=== PATIENT | male | born 1945 | race Caucasian/White ===

== ENCOUNTER 2017-07-17 11:03 | Day surgery (SDC) | payer MEDICARE, SELFPAY ==
[2017-07-17 11:25] VITALS: BP 192/74; PULSE 50; RESP 16; TEMP 36.3; O2SAT 96; BMI 23.2
[2017-07-17 11:46] LABS: Bedside Glucose 112 mg/dL (70-110)
[2017-07-17 12:28] VITALS: BP 140/56; BP 192/74; PULSE 46; RESP 16; TEMP 35.7; O2SAT 96
[2017-07-17 12:35] VITALS: BP 155/60; BP 192/74; PULSE 48; RESP 16; O2SAT 91
[2017-07-17 12:40] VITALS: BP 164/63; BP 192/74; PULSE 48; RESP 16; O2SAT 92
[2017-07-17 12:45] VITALS: BP 179/59; BP 192/74; PULSE 48; RESP 16; TEMP 36.8; O2SAT 95
--- NOTE | 2017-07-17 13:11 | OP.PCM_ITS ---
Report of Operation Date of Procedure: 07/17/17 Pre-Operative Diagnosis: abnormal lesion seen on cecum of CT scan Post-Operative Diagnosis: no abnormality noted Surgery/Procedure Performed:: colonoscopy Description of Surgical Findings:: CT scan of abdomen/pelvis obtained which indicated that there was an abnormal lesion in the cecum, the cecum was carefully examined and no abnormality was noted Anesthesiologist: Pancho Wu Specimen's removed: none Estimated Blood Loss (mL): none Fluids Replaced: 600 ml RL Description of Procedure: After informed consent was given, the patient was brought to the endoscopy suite and placed in the supine position. Appropriate time out protocol was followed. Appropriate cardiac, blood pressure, and pulse oximetry monitoring was placed. After stable vital signs were noted, the patient was given intravenous conscious sedation. The patient was then placed in the left lateral decubitis position. The colonoscope was lubricated and carefully inserted into the patient?s anus. It was then advanced into the rectum, then into the sigmoid colon, then into the left descending colon, past the splenic flexure, into the transverse colon, past the hepatic flexure, then down into the right descending colon and into the cecum. The cecum was identified by: transillumination, confluence of the tenae coli, identification of the ileocecal valve and appendiceal orifice, and external pressure with indentation. Because of the CT scan results, careful examination of the cecum was done. There was no evidence of any masses or mucosal abnormality. At this point, the colonoscope was slowly retracted back and the entire colonic mucosa was examined. There was no evidence of extrinsic compression and no inflammatory changes were noted. The colon cleansing preparation was adequate. No intraluminal obstructing lesions, no strictures, and no ulcers were noted. Retroflex view in the rectum revealed no lesions in the rectal vault except for hemorrhoids. The colonoscope was removed intact. Patient tolerated procedure well. - Complications none
[2017-07-17 13:15] VITALS: BP 192/74
--- NOTE | 2017-07-23 10:59 | HP.PCM_ITS ---
History and Physical Date of Admission: 07/17/17 HISTORY AND PHYSICAL ? Anival Harris 1945 ?? REFERRING PHYSICIAN: Noel Raymond MD ? CHIEF COMPLAINT: Consult (Cecal lesion) ? HPI: The patient is a 72 year old male presents with abnormal CT scan finding in the cecum of the colon (06/27/17) He had colonoscopy 10/28/16, for which pictures reveal no lesion, however, there seems to have been retained stools. (Also had hyperplastic polyps of sigmoid and rectum.) However, given findings on CT scan - I would recommend repeat colonoscopy. Patient recalls from his previous endoscopy of being very uncomfortable - will therefore proceed with future endoscopy using MAC anesthesia. Denies weight loss. Denies family history of colon cancer. Has had increased abdominal gas lately Notes occasional constipation. Denies blood in stools Presently on iron supplementation for anemia. Notes stomach pain - mid abdomen which seems improved since decreased use of ibuprofen. ? PAST MEDICAL HISTORY Costa's esophagus determined by biopsy 10/26/2016 CAD (coronary artery disease) ? ? CABG 2004 Depressive disorder, not elsewhere classified ? Diabetes (HCC) ? Elevated glucose ? Essential hypertension, benign ? Horseshoe kidney ? ? CT 01/2010 Other and unspecified hyperlipidemia ? Pancreatitis ? Snoring ? Stroke (HCC) ? PAST SURGICAL HISTORY CABG (5) VENOUS GRAFTS & ARTERIAL GRAFT(S) ? 2005 COLONOSCOP W/ OR W/O BRS SPEC ? 09/18/14 ? Colonoscopy COLONOSCOP W/ OR W/O BRS SPEC ? 10/26/2016 ? Colonoscopy-repeat 5 years EGD W/O OR W/BRUSH/WASH ? 09/18/14 ? EGD EGD W/O OR W/BRUSH/WASH ? 10/26/2016 ? EGD repeat 2 years STABISMUS SURG,ONE HORIZ MUSCLE ? 1961 ? Strabismus Surgery ? ? Current Outpatient Prescriptions: metFORMIN (GLUCOPHAGE) 500 mg tablet Take 2 tablets by mouth twice daily. metoprolol tartrate, short acting, (LOPRESSOR) 100 mg tablet Take 1 tablet by mouth twice daily. ferrous sulfate (IRON) 325 mg (65 mg iron) tablet Take 1 tablet by mouth daily with breakfast. lisinopril (ZESTRIL, PRINIVIL) 20 mg tablet Take 1 tablet by mouth once daily. citalopram hydrobromide (CELEXA) 10 mg tablet Take 1 tablet by mouth once daily. LORazepam (ATIVAN) 0.5 mg tab Take 2 tablets by mouth every 8 hours as needed (anxiety) for up to [address] (PROTONIX) 40 mg tablet Take 1 tablet by mouth twice daily. Take on empty stomach, 1/2 hr before meal. Ammonium,Pot.and Sodium Lactates (AMLACTIN) crea Apply 1 application to affected area once daily. divalproex ER (DEPAKOTE ER) 250 mg 24 hr tablet Take 1 tablet by mouth once daily. terbinafine HCl (LAMISIL) 250 mg tablet Take 1 tablet by mouth once daily. Lovastatin 40 mg tablet TAKE ONE TABLET BY MOUTH ONCE DAILY AT BEDTIME FOR cholesterol. ibuprofen (MOTRIN) 200 mg tablet Take 200 mg by mouth every 6 hours as needed. therapeutic multivitamin (THERA VITAMIN) tablet Take 1 tablet by mouth once daily. nitroglycerin sublingual 0.4 mg SL tablet Dissolve 1 tablet under the tongue as needed. FOR CHEST PAIN. IF NO RELIEF CALL 911 peg 3350-electrolytes (COLYTE) 240-22.72-6.72 -5.84 gram solution Take 4,000 mL by mouth one time only for 1 dose. ? ? ALLERGIES: Erythromycin; Penicillins ? PERSONAL HISTORY: Social History Marital status: Spouse name: Years of education: Number of children: 2 Social History Main Topics Smoking status: Current Every Day Smoker Packs/day: 0.50 Years: 0.00 Types: Cigarettes Smokeless status: Never Used Comment: Use to smoke 3 ppd now down to 1.5 ppd Alcohol use: No Drug use: No Sexual activity: No ? FAMILY HISTORY lung cancer [OTHER] Mother ? lung cancer [OTHER] Sister ? Heart Brother ? ? REVIEW OF SYSTEMS: General: The patient denies fatigue, denies weight loss, denies weight gain, denies feeling hot, and denies feelings of cold. Eyes: The patient denies glaucoma, denies eye injury/surgery, wears glasses or contacts. Ear/Nose/Throat: The patient denies allergies, denies hayfever, denies ear infections, and denies bloody noses. Cardiovascular: The patient denies chest pain, denies heart disease, NOTES high blood pressure,NOTES cardiac stent, denies prior heart attack, denies irregular heart beat, NOTES high cholesterol, denies poor circulation, denies heart failure, other cardiac issues, denies claudication, denies cold feet, denies peripheral arterial stent. Respiratory: The patient denies tuberculosis, denies pneumonia, denies frequent cough, denies pulmonary embolism, denies shortness of breath, and denies coughing up blood. Gastrointestinal: The patient denies difficulty swallowing, NOTES acid reflux, denies ulcers, denies vomiting, denies jaundice/hepatitis, denies gallbladder problems, denies black or tarry stools, denies hemorrhoids, denies bleeding from rectum, denies diverticulitis, NOTES constipation, denies diarrhea , denies loss of stool control, and denies hernias. Kidney/Bladder: The patient denies kidney stones, denies urine infections , and denies bloody urine. Skin: The patient denies a history of skin cancer, denies bleeding/ changing moles, and denies a history of skin rash. Neurologic: The patient denies a history of epilepsy/convulsions, denies headaches, denies head/spinal injuries, and NOTES stroke/TIA. Psychiatric: The patient denies psychiatric medications, NOTES depression , and denies voices, denies substance abuse. Endocrine: The patient denies thyroid disorders, NOTES diabetes, and denies hormonal problems. Hematologic: The patient denies a history of bruising, denies bleeding, and NOTES anemia, denies blood clots. Infections: The patient denies a history of measles and mumps, denies rheumatic fever, and denies sexually transmitted diseases. Musculoskeletal: The patient NOTES back pain/injury, denies back problems , denies sciatica, denies knee/foot trouble, NOTES arthritis, or denies gout. ? ? PHYSICAL EXAMINATION: General: The patient is 72 year old male, well nourished, well hydrated in no acute distress. The patient is oriented to time, place, and person. VITALS: Blood pressure 132/72, pulse 82. T Head Normocephalic. EOM intact with sclera clear and no icterus noted. Wearing glasses. Mouth with mucus membranes moist. Neck - supple with no jugular venous distention noted. Trachea is midline. Lungs clear to auscultation. Normal breath sounds No rales/rhonchi/wheezing noted. No labored breathing noted, such as retractions. . Heart normal S1 and S2 auscultated. No rubs/clicks/murmurs noted. Regular rate. Abdomen soft and benign. Normal bowel sounds. Extremities no pitting edema noted. . Skin normal skin integrity. Neurological no focal deficits noted Psych calm and appropriate RADIOLOGIC STUDIES: As Noted ? ? IMPRESSION: abnormal CT scan ? PLAN: I have discussed the above with the patient and his . Will repeat colonoscopy given CT scan findings. Because of patient's discomfort - will proceed with MAC endoscopy. Patient has requested it to be done at [facility]. I have explained the procedure to the patient. I have counseled the patient as to the risks of the procedure, including but not limited to: infection, bleeding, injury to any intraabdominal organs such as liver/spleen, perforation of GI tract, complications of anesthesia, etc. the patient understands. The patient wishes to proceed. ?I have answered all questions to the patients satisfaction and the patient has no further questions. Greater than 50% of this patient encounter was dedicated to face to face discussion with the patient. ? . Diagnoses: (R93.3) Abnormal CT scan, gastrointestinal tract (primary encounter diagnosis) ? Veronica Coleman MD
== END 2017-07-17 13:27 | disposition home or self-care (01) ==
LOC: EN 11:05 → AC 11:08
PROVIDERS: Family Provider Family Medicine; PCP Family Medicine; Visit Provider Surgery
PROC: 0DJD8ZZ Inspection of Lower Intestinal Tract, Via Natural or Artificial Opening Endoscopic (ICD-10-PCS; CPT 45378; principal; 2017-07-17 11:55)
DX: R93.3 Abnormal findings on diagnostic imaging of other parts of digestive tract (principal); K64.9 Unspecified hemorrhoids; K22.70 Barrett's esophagus without dysplasia; I25.10 Atherosclerotic heart disease of native coronary artery without angina pectoris; F32.9 Major depressive disorder, single episode, unspecified; E11.9 Type 2 diabetes mellitus without complications; I10 Essential (primary) hypertension; Q63.1 Lobulated, fused and horseshoe kidney; E78.5 Hyperlipidemia, unspecified; F17.210 Nicotine dependence, cigarettes, uncomplicated; I25.2 Old myocardial infarction; Z95.1 Presence of aortocoronary bypass graft; D64.9 Anemia, unspecified; F41.9 Anxiety disorder, unspecified; Z86.73 Personal history of transient ischemic attack (TIA), and cerebral infarction without residual deficits; Z79.84 Long term (current) use of oral hypoglycemic drugs; Z79.899 Other long term (current) drug therapy
CPT/HCPCS: 45378; 82962; J7120

== ENCOUNTER 2017-10-05 12:00 | Emergency (ER) | payer MEDICARE, SELFPAY ==
[2017-10-05 12:01] VITALS: BP 163/82; PULSE 56; RESP 16; TEMP 36.6; O2SAT 97; BMI 23.6
--- NOTE | 2017-10-05 12:05 | EKG12_ITS ---
Test Reason : CP Blood Pressure : / mmHG Vent. Rate : 059 BPM Atrial Rate : 059 BPM P-R Int : 204 ms QRS Dur : 166 ms QT Int : 522 ms P-R-T Axes : 030 125 -07 degrees QTc Int : 516 ms Sinus bradycardia Non-specific intra-ventricular conduction block Abnormal ECG Confirmed by SHANA ALFARO, ELIZABETH ([id number]), film editor FREDY LYEVA ([id number]) on 10/09/2017 2:41:28 PM Referred By: Jasen Rowell Confirmed By:ELIZABETH SALDANA MD
[2017-10-05 12:32] LABS: Absolute Lymphocyte Count 1.81 X10^3/ul (0.83-4.51); Absolute Neutrophil Count 5.6 X10^3/uL (2.0-7.7); Basophil# 0.03 X10^3/uL; Basophil% 0.4 % (0-1); Eosinophil# 0.11 X10^3/uL; Eosinophils% 1.3 % (0-5); Hemoglobin 12.9 g/dl (13.0-16.5); Lymphocyte # 1.81 X10^3/ul (4.0); Lymphocyte % 21.3 % (19-41); Mean Corp Hgb Conc 31.5 g/gl (32-36); Mean Corpuscular Hgb 24.8 pg (27.0-32.0); Mean Corpuscular Volume 78.8 fL (80-94); Mean Platelet Vol. 8.9 fl (6.2-12.0); Monocyte# 0.92 X10^3/uL; Monocyte% 10.8 % (0-10); Neutrophil # 5.62 X10^3/uL (2.7-7.7); Platelet Count 258 K/mm3 (150-450); RBC Distribution Width CV 15.1 % (11.6-14.6); RBC Distribution Width SD 43.7 fl (35.1-43.9); White Blood Count 8.5 K/mm3 (4.4-11.0)
[2017-10-05 12:35] LABS: POSITIVE COUNT NO; POSITIVE DIFFERENTIAL NO; POSITIVE MORPHOLOGY NO
[2017-10-05 12:50] LABS: Anion Gap 11 (5-15); BUN 11 mg/dL (7-18); BUN/Creat Ratio 12.2 RATIO (10-20); Calcium,Total 8.5 mg/dL (8.5-10.1); Chloride 99 mmol/L (98-107); EST Glomerular Filtration Rate 88 mL/min (>60); Est Glom Filt Rate - Afr Amer 106 mL/min (>60); Estimated Creatinine Clearance 76.69 ml/min; Glucose 181 mg/dL (74-106); Sodium Level 134 mmol/L (136-145)
--- NOTE | 2017-10-05 13:01 | RAD_ITS ---
STUDY: X-RAY CHEST REASON FOR EXAM: Male, 72 years old. Chest pain. TECHNIQUE: Single AP portable view of the chest. COMPARISON: Comparison is made with prior study dated August 10, 2016. FINDINGS: EKG electrodes are seen. There is evidence of increased interstitial markings and mild vascular congestion in keeping with mild degree of CHF. There is no demonstrated pleural abnormality. Sternal cerclage wires and vascular clips are present from a prior sternotomy and coronary artery bypass graft procedure (CABG). Borderline cardiomegaly. Normal mediastinum and gila. Normal visualized pulmonary arteries. There is atherosclerotic calcification of the aortic arch with tortuosity. Normal visualized thoracic spine. Normal visualized ribs, clavicles, and shoulders. There is no demonstrated abnormality of the visualized soft tissue structures of the upper abdomen. RAD/Chest 1 View (Portable) IMPRESSION: Findings in keeping with a mild degree of CHF. Electronically Signed: Feng Diallo MD at 13:29 EDT Tel [phone], Service support ,
[2017-10-05] MEDS: Acetaminophen 500 MG Tablet 1000 MG PO (15:15)
[2017-10-05] MEDS: Dicyclomine 10 MG Capsule PO (15:16)
[2017-10-05 15:18] VITALS: BP 163/83; PULSE 57; RESP 19; O2SAT 94
[2017-10-05 16:03] VITALS: BP 163/73; PULSE 56; RESP 12; O2SAT 92
--- NOTE | 2017-10-05 16:19 | ED.VIS.GEN ---
History of Present Illness Chief Complaint: Chest Pain Informant: Patient Onset: Days - 2 Context: Gradual Onset Timing: Continuous Quality: like gas, achy Location: upper abd, left chest, radiating down LUE Current Severity: Mild Maximum Severity: Moderate Worsened by: some foods Relieved by: mylanta Associated Symptoms: diarrhea about 4x/day for about 3-4d Narrative: Patient states he has been having these symptoms off and on for a long time, months. He states it is his stomach, not as hard, however since he is symptoms are little more prominent in the last couple days and he was complaining of chest discomfort with it, he was sent for further evaluation to the ER. He states his symptoms resolved when he takes Mylanta and Gas-X, however then they returned later. He was recently diagnosed with H pylori and started on combination antibiotic treatment for that, that was a couple weeks ago. For the last 3 or 4 days he has been having diarrhea which is new, and in that amount of time, his abdominal and chest symptoms are worse. No fevers. Prior similar symptoms: Yes - Past Medical History (1) Microcytic anemia Status: Chronic (2) Coronary artery disease Status: Chronic (3) Hyperlipidemia Status: Chronic (4) Hypertension Status: Chronic (5) Status post coronary artery bypass graft Status: Chronic (6) Type 2 diabetes mellitus Status: Chronic Past Medical History - Allergies and Home Meds Allergies/Adverse Reactions: Allergies erythromycin base Allergy (Verified 10/05/17 12:04) Hives Penicillins [PCN] Allergy (Verified 10/05/17 12:04) Itching Primary Care Physician: Noel Raymond MD [Primary Care Provider] - Surgical History: coronary bypass surgery Lives: Spouse/ Significant Other Smoking Status: Never smoker Drugs: None - Family History Maternal Family History: Reports: No pertinent history Paternal Family History: Reports: No pertinent history Review of Systems All systems negative except as indicated Cardiovascular: Reports: Chest pain Gastrointestinal: Reports: Abdominal pain, Diarrhea Musculoskeletal: Reports: Neck pain - that developed after lying on ER bed for awhile Neurological: Reports: Headache - that developed after lying on ER bed for awhile Physical Exam Vital Signs/Narrative: Vital Signs Pulse Resp BP Pulse Ox 10/05/17 16:03 56 L 12 163/73 H 92 10/05/17 15:18 57 L 19 H 163/83 H 94 General: Well nourished, Well developed Head: Normocephalic, Atraumatic Eyes: Perrl, EOMI ENT: Moist mucous membranes, No rhinorrhea Neck: Supple, Nontender Cardiovascular: Regular rate, Regular rhythm, No murmurs Respiratory: No distress, CTA bilaterally, Chest nontender Abdomen: Soft, Nondistended, Normal bowel sounds, Tender - mildly across upper abd and LLQ. Negative for: Guarding, Rebound tenderness Back: Nontender, Normal Inspection Extremities: Nontender, No edema Skin: Normal color, No rash Neurological: Alert, Oriented x3, Cranial nerves II-XII grossly intact, Normal Strength, Normal Sensation Psychological: Normal affect Diagnostic/Tx/Re-eval Impressions Chest X-Ray 10/05/17 13:01 IMPRESSION: Findings in keeping with a mild degree of CHF. Electronically Signed: Feng Diallo MD at 13:29 EDT Tel [phone], Service support , 10/05/17 13:01 Chest 1 View (Portable) [RAD] Stat Laboratory Results 10/05/17 10/05/17 10/05/17 Range/Units 12:17 12:17 12:17 WBC 8.5 (4.4-11.0) K/mm3 RBC 5.20 (4.6-6.2) M/mm3 Hgb 12.9 L (13.0-16.5) g/dl Hct 41.0 (40-54) % MCV 78.8 L (80-94) fL MCH 24.8 L (27.0-32.0) pg MCHC 31.5 L (32-36) g/gl RDW 15.1 H (11.6-14.6) % RDW Differential 43.7 (35.1-43.9) fl Plt Count 258 (150-450) K/mm3 MPV 8.9 (6.2-12.0) fl Immature Gran % (Auto) 0.200 (0.0-0.9) % Neut % (Auto) 66.0 (47-70) % Lymph % (Auto) 21.3 (19-41) % Throckmorton % (Auto) 10.8 H (0-10) % Eos % (Auto) 1.3 (0-5) % Baso % (Auto) 0.4 (0-1) % Absolute Neuts (auto) 5.6 (2.0-7.7) X10^3/uL Absolute Lymphs (auto) 1.81 (0.83-4.51) X10^3/ul Total Counted Not Reportable Sodium 134 L (136-145) mmol/L Potassium 4.0 (3.5-5.1) mmol/L Chloride 99 (98-107) mmol/L Carbon Dioxide 24.0 (21.0-32.0) mmol/L Anion Gap 11 (5-15) BUN 11 (7-18) mg/dL Creatinine 0.90 (0.70-1.30) mg/dL Estim Creat Clear Calc 76.69 ml/min Est GFR (MDRD) Af Amer 106 (>60) mL/min Est GFR (MDRD) Non-Af 88 (>60) mL/min BUN/Creatinine Ratio 12.2 (10-20) RATIO Glucose 181 H (74-106) mg/dL Calcium 8.5 (8.5-10.1) mg/dL Troponin I < 0.015 (<0.045) ng/mL B-Natriuretic Peptide 801.0 H (0-100) pg/mL - Medical Decision Making Other than an x-ray that is consistent with venous congestion, his workup is unremarkable. I do not think this is related to his symptoms. I added a BNP, it is 800, which is essentially within normal limits for someone his age, or at least rules out acute decompensated congestive heart failure, which he has no symptoms or findings of. My concern is that he has developed C. difficile colitis, which could exacerbate his symptoms if GI-related. His cardiac workup is negative, and he has had continuous symptoms for 2+ days, therefore do not think he needs to be admitted for these for further workup with regards to his heart. He was given Tylenol and repositioned and his headache and neck pain were much better, and he states his abdomen and belching is feeling much better now. We monitored him for a while to see if he could provide a stool sample but he states he cannot, and he prefers to go home and collect at home. I will prescribe him the study and advised to follow-up with his doctor after providing the sample if the diarrhea continues. ED Disposition - Plan for ED Patient: Disposition: Home or Assisted Living Chief Complaint: Chest Pain Diagnosis: Chest pain, non-cardiac, Abdominal pain, diffuse, Acute diarrhea, H. pylori infection Instructions: ED Chest Pain NonCardiac, ED Gastroenteritis Report Pend Referrals: Noel Raymond MD [Primary Care Provider] - 3-5 Days
[2017-10-05 17:09] VITALS: BP 166/105; PULSE 58; RESP 16; O2SAT 96
== END 2017-10-05 17:10 | disposition home or self-care (01) ==
PROVIDERS: Emergency Provider Emergency Medicine; Family Provider Family Medicine; PCP Family Medicine
DX: R07.89 Other chest pain (principal); R10.84 Generalized abdominal pain; R19.7 Diarrhea, unspecified; A04.8 Other specified bacterial intestinal infections; I25.10 Atherosclerotic heart disease of native coronary artery without angina pectoris; E78.5 Hyperlipidemia, unspecified; I10 Essential (primary) hypertension; E11.9 Type 2 diabetes mellitus without complications; D50.9 Iron deficiency anemia, unspecified; Z95.1 Presence of aortocoronary bypass graft; Z79.2 Long term (current) use of antibiotics; Z79.84 Long term (current) use of oral hypoglycemic drugs; Z79.899 Other long term (current) drug therapy
CPT/HCPCS: 71045; 80048; 83880; 84484; 85025; 93005; 99284

== ENCOUNTER → 2017-10-06 13:24 | Outpatient (CLI) | payer MEDICARE, SELFPAY | PROVIDERS: Family Provider Family Medicine; PCP Family Medicine; Visit Provider Emergency Medicine | DX: R19.7 Diarrhea, unspecified (principal) | CPT/HCPCS: 87493 ==

== ENCOUNTER → 2018-11-12 14:41 | Outpatient (CLI) | payer MEDICARE, SELFPAY ==
[2018-10-18 15:40] VITALS: BMI 28.0
--- NOTE | 2018-11-12 14:45 | RAD_ITS ---
STUDY: X-RAY - LUMBAR SPINE REASON FOR EXAM: Male, 73 years old. Back pain. TECHNIQUE: 3 view(s) of the lumbar spine were obtained. COMPARISON: None FINDINGS: No visible fracture. No osseous destruction. Mild left scoliosis centered at L3. Sagittal alignment is anatomic. Marked disc degeneration L2-3. Marked facet degeneration L4-5 and L5-S1. No acute soft tissue abnormality. Dense calcific atherosclerosis. RAD/Lumbar Spine 2 or 3 Views IMPRESSION: No acute osseous abnormality. Prominent degenerative changes. Electronically Signed: Guerrero Triana, at 20:40 EDT Tel , Service support ,
--- NOTE | 2018-11-12 14:45 | RAD_ITS ---
STUDY: X-RAY - CERVICAL SPINE REASON FOR EXAM: Male, 73 years old. Neck pain TECHNIQUE: 4 view(s) of the cervical spine were obtained. COMPARISON: None FINDINGS: Examination is technically suboptimal due to comminution of factors, including patient positioning, views and demineralization of the skeleton due to osteoporosis. Diagnostic information is available. Craniocervical junction and cervical spine are straightened and aligned. Mineralization is diffusely decreased. There are appropriate age-related degenerative changes. There are extensive atherosclerotic ossifications bilaterally in the carotids. Sternotomy wires are in place. RAD/Cerv Spine 2 or 3 Views IMPRESSION: Degenerative cervical spine. Carotid atherosclerosis. Possibility of carotid stenosis is raised which can be further evaluated with ultrasonography. Electronically Signed: Eryn Rodriguez, at 19:51 EDT Tel , Service support ,
== END ==
PROVIDERS: Family Provider Family Medicine; PCP Family Medicine; Referring Provider Anesthesiology Pain Medicine; Visit Provider Anesthesiology Pain Medicine
DX: M54.2 Cervicalgia (principal); M54.9 Dorsalgia, unspecified
CPT/HCPCS: 72040; 72100

== ENCOUNTER → 2018-11-13 11:01 | Outpatient (CLI) | payer MEDICARE, SELFPAY ==
[2018-10-18 15:40] VITALS: BMI 28.0
--- NOTE | 2018-11-13 11:03 | ECHOCS_ITS ---
Reason For Study: CAD/ASHD Procedure This was a 2D Doppler, Color Flow transthoracic echocardiogram. The study was technically difficult. Contrast injection was performed. Exam performed in department. Left Ventricle Normal LV size. Left ventricular systolic function is normal. The estimated ejection fraction is 55 %. Post operative septal motion. Diastolic function is indeterminate. No regional wall motion abnormalities noted. Right Ventricle Normal RV size. Normal systolic function. Atria The left atrium is mildly enlarged. Normal right atrium. No doppler evidence for ASD. Mitral Valve There is no mitral annular calcification. Normal mitral valve. Trivial mitral valve insufficiency. Tricuspid Valve Normal tricuspid valve. Mild tricuspid valve insufficiency. Right ventricular systolic pressure estimated to be 46 mmHg. Aortic Valve Trisinus/trileaflet aortic valve. Mild diffuse aortic valve thickening. Mild diffuse aortic valve calcification. Mild aortic stenosis. Pulmonic Valve The pulmonic valve is not well visualized. Trivial pulmonic valve insufficiency. Great Vessels Normal sized aortic root. Calcified aortic root. Pericardium/Pleural No pericardial effusion. Medication 22 gauge I.V. with prn adaptor inserted into right arm. Diluted definity 3ml given slow IV push to enhance endocardial definition. MMode/2D Measurements & Calculations LVIDd: 4.9 cm IVSd: 1.5 cm LVOT diam: 2.0 cm LVIDs: 3.7 cm LVPWd: 0.79 cm RVDd: 3.7 cm FS: 25.5 % LVOT area: 3.2 cm2 Ao root diam: 3.2 cm LAV(MOD-sp4): 63.7 ml LA A4 area: 19.9 cm2 LA dimension: 4.6 cm RA A4 area: 16.7 cm2 Time Measurements MV dec time: 0.26 sec Doppler Measurements & Calculations MV E max leon: 63.0 cm/sec Lat Peak E' Leon: 5.6 cm/sec Med Peak E' Leon: 6.0 cm/sec MV A max leon: 82.9 cm/sec E/E' lat: 11.4 E/E' med: 10.5 MV E/A: 0.76 MV V2 max: 118.5 cm/sec MV P1/2t max leon: 82.8 cm/sec Ao V2 max: 206.2 cm/sec MV max P.6 mmHg MV P1/2t: 104.8 msec Ao max P.0 mmHg MV V2 mean: 59.7 cm/sec MV dec slope: 231.6 cm/sec2 Ao V2 mean: 141.4 cm/sec MV mean P.7 mmHg MVA(P1/2t): 2.1 cm2 Ao mean P.1 mmHg MV V2 VTI: 33.6 cm Ao V2 VTI: 47.8 cm MVA(VTI): 1.9 cm2 IRINA(I,D): 1.3 cm2 IRINA(V,D): 1.3 cm2 LV V1 max: 85.9 cm/sec SV(LVOT): 62.5 ml PA V2 max: 107.9 cm/sec LV V1 max P.0 mmHg LV V1 mean P.2 mmHg LV V1 mean: 50.5 cm/sec LV V1 VTI: 19.5 cm TR max leon: 329.2 cm/sec TR max P.3 mmHg Interpretation Summary The study was technically difficult. Contrast injection was performed. Left ventricular systolic function is normal. The estimated ejection fraction is 55 %. Post operative septal motion. The left atrium is mildly enlarged. Trivial mitral valve insufficiency. Mild tricuspid valve insufficiency. Mild aortic stenosis. Trivial pulmonic valve insufficiency. Calcified aortic root. Right ventricular systolic pressure estimated to be 46 mmHg. Diastolic function is indeterminate. Ordering Physician: Zane Warren Referring Physician: MD Noel Raymond Performed By: Jermaine Stewart RCS
[2018-11-13 12:58] LABS: Anion Gap 9 (5-15); BUN 19 mg/dL (7-18); BUN/Creat Ratio 12.8 RATIO (10-20); Chloride 88 mmol/L (98-107); Creatinine, Serum 1.49 mg/dL (0.70-1.30); EST Glomerular Filtration Rate 49 mL/min (>60); Est Glom Filt Rate - Afr Amer 59 mL/min (>60); Glucose 163 mg/dL (74-106); Sodium Level 125 mmol/L (136-145)
== END ==
PROVIDERS: Family Provider Family Medicine; PCP Family Medicine; Referring Provider Internal Medicine Cardiovascular Disease; Visit Provider Internal Medicine Cardiovascular Disease
DX: I25.119 Atherosclerotic heart disease of native coronary artery with unspecified angina pectoris (principal); I11.0 Hypertensive heart disease with heart failure; I50.32 Chronic diastolic (congestive) heart failure; E78.5 Hyperlipidemia, unspecified; R01.1 Cardiac murmur, unspecified; Z95.1 Presence of aortocoronary bypass graft
CPT/HCPCS: 36415; 80048; 93306; Q9957; A4216; C8929

== ENCOUNTER → 2018-11-19 | Outpatient (CLI) | payer MEDICARE, SELFPAY ==
[2018-11-19 15:41] VITALS: BMI 28.0
[2018-11-19 17:59] LABS: Anion Gap 10 (5-15); BUN 23 mg/dL (7-18); BUN/Creat Ratio 17.3 RATIO (10-20); Calcium,Total 8.9 mg/dL (8.5-10.1); Chloride 96 mmol/L (98-107); Creatinine, Serum 1.33 mg/dL (0.70-1.30); EST Glomerular Filtration Rate 56 mL/min (>60); Est Glom Filt Rate - Afr Amer 67 mL/min (>60); Glucose 60 mg/dL (74-106); Potassium 4.5 mmol/L (3.5-5.1); Sodium Level 129 mmol/L (136-145)
== END | disposition home or self-care (01) ==
PROVIDERS: Family Provider Family Medicine; PCP Family Medicine; Referring Provider Internal Medicine Cardiovascular Disease; Visit Provider Internal Medicine Cardiovascular Disease
DX: I25.10 Atherosclerotic heart disease of native coronary artery without angina pectoris (principal); Z95.1 Presence of aortocoronary bypass graft
CPT/HCPCS: 36415; 80048

== ENCOUNTER 2018-11-21 13:00 | Outpatient (RCR) | payer MEDICARE, SELFPAY ==
[2018-10-18 15:40] VITALS: BMI 28.0
[2018-11-19 15:41] VITALS: BMI 28.0
--- NOTE | 2018-11-22 09:29 | HP.PTEVAL_ITS ---
Patient's Visit Information MARGARITA BUCKNER is a 73 year old M referred to Physical Therapy by Ricki Coy MD with a diagnosis of NECK PAIN,BACK PAIN ,FALLS. Date of Evaluation: 11/21/18 Physical Therapist: Tang Horta PT, Cert MDT, OCS - Visit Plan Frequency: 2x /Week Duration: 4 Weeks Plan: PT INTERVENTIONS CERVICAL ROM/POSTURAL EX'S,DLS ,LE STENHENING,BALANCE PROGRAM, - Subjective Findings: This 73 y/o male presents to physical therapy neck and back pain . pateint has h/o falls none recent. Patient has back and neck pain many years. Pateint neck and pack symmtrical lumbar with radiating symptoms to thighs. Patient c/o dizzzines ,JUARES. Pateint symptoms worse with bending ,lifting lumbar,turning neck ,walking and standing > than 10 mins. Bowel/bladder-. Sleeping is affected by pain. Patient symptoms better with rest. Alleviating factors rest/sitting. Patient seen Dr Christie Villa. Patient c/o has occassional paratghesia in hand and feet along with pain.Coughing /sneezing-. Patient has h/o injurty in oil [place].Pateint condtion affects ADLS and housework tasks. SOCIAL : . VOCATION: retired - Pain Left Back Pain Intensity (Out of 10): 6 Pain Intensity Range: 10 Bilateral Neck Pain Intensity (Out of 10): 6 Pain Intensity Range: 10 Right Back Pain Intensity (Out of 10): 6 Pain Intensity Range: 10 - Objective POSTURE: mild foward posture. GAIT: reciprocal pattern slightly unsteady. NEURO: c/o parathesia hands/feet,reflexes 1/3 C5-6-7,L5-S1 1/3. PALPATION: L- S. FLEXABLITY: hams mod /severe. CERVICAL ROM : flexion min loss,extension ,lateral flexion/rotation mod loss. LUMBAR ROM:flexion mod loss ,extension mod loss,side glides mod loss. MMT: BUE grossly 4/5 ,shoulder 4-/5,quads/hams 4/5 ,hip flexion 4-/5,ankle 4/5 - Special Tests C/S Radiculapathy - Left Upper limb tension test: Negative C/S Radiculapathy - Right Upper limb tension test: Negative C/S Radiculapathy - Left Spurlings: Negative C/S Radiculapathy - Right Spurlings: Negative C/S Radiculapathy - Left Cervical distraction: Negative C/S Radiculapathy - Right Cervical distraction: Negative C/S Radiculapathy - Left Relief test: Negative C/S Radiculapathy - Right Relief test: Negative Sharp Sowmya: Negative Vertebral Artery Test: Negative Alar Ligament Test: Negative L/S Slump test left side: Negative L/S Slump test right side: Negative L/S Left Straight Leg Raise: Negative L/S Right Straight Leg Raise: Negative - Balance Scores Functional Gait Assessment Score: 13 % Disability: 56.6700 CATSIB Score (Max score 120 seconds): 50 - Goals Goal 1:: Independant with HEP Goal Time Frame: 2-4 Weeks Goal 2:: Improve quality of gait by recommended straight cane for community distances Goal Time Frame: 2-4 Weeks Goal 3:: Pateint decrease neck and bcak pain by 50% > to improve QOL. Goal Time Frame: 2-4 Weeks Goal 4:: Patient to improve CATSIB by 5 points to decrease of falls. Goal Time Frame: 2-4 Weeks Goal 5:: Pateint increase strrength BLE to 4/5 to improve gait Goal Time Frame: 2-4 Weeks Goal 6:: Pateunt to improve dynamic gait index score by 5-10 points to improve QOL. Goal Time Frame: 2-4 Weeks - Rehabilitation Potential Physical Therapy Diagnosis: Pateint has neck and back pain along with balance deficits causes pain ,weakness legs. impairs walking ,standing and ADLS' along with gait deficits impairs quality of gait recommended cane. Rehabilitation Potential: Good - Anticipated Interventions Patient/Client Instruction: Educate patient on: Condition, Plan of Care For the Purpose of:: To decrease pain, To improve muscle performance and motor function, To improve ability to perform ADL's, To increase tolerance to activity/condition/position, To improve ability of physical actions for home/community/work/leisure, To improve gait and locomotor functions, To improve health of tissue, To decrease soft tissue restriction, To improve endurance, To improve balance, To reduce risk of recurrence, To improve ability to perform tasks related to life management Therapeutic Exercise to Include: Strength training, Endurance training, Balance training, Postural training, Flexibilty training, Gait and locomotor training, Dynamic Lumbar Stabilization Comment: BLE For the Purpose of:: To decrease pain, To increase ROM, To improve muscle performance and motor function, To improve ability to perform ADL's, To increase tolerance to activity/condition/position, To improve ability of physical actions for home/community/work/leisure, To improve gait and locomotor functions, To increase flexibility/ROM, To improve balance, To improve safety with gait, To reduce risk of recurrence, To improve ability to perform tasks related to life management Thank you for the opportunity to evaluate your patient. For Medicare and Medicare HMO plans, please review the plan of care and approve it. It will need to be FAXED BACK to us at [phone] for Medicare purposes. For Medicare only, by signing this I certify the plan of care. Please let me know if there are questions or concerns regarding this plan of care. Physician Signature: Date:
--- NOTE | 2019-01-16 15:08 | HP.PTDCNRP_ITS ---
HP - Discharge Summary (1) - Patient Information MARGARITA BUCKNER was seen in my office for initial evaluation on 11/21/18. The following Plan of Care was established for this patient: Initial Frequency: 2x /Week Initial Duration: 4 Weeks - Anticipated Interventions Patient/Client Instruction: Educate patient on: Condition, Plan of Care For the Purpose of:: To decrease pain, To improve muscle performance and motor f unction, To improve ability to perform ADL's, To increase tolerance to activity/condition/position, To improve ability of physical actions for home/community/work/leisure, To improve gait and locomotor functions, To improve health of tissue, To decrease soft tissue restriction, To improve endurance, To improve balance, To reduce risk of recurrence, To improve ability to perform tasks related to life management Therapeutic Exercise to Include: Strength training, Endurance training, Balance training, Postural training, Flexibilty training, Gait and locomotor training, Dynamic Lumbar Stabilization For the Purpose of:: To decrease pain, To increase ROM, To improve muscle performance and motor function, To improve ability to perform ADL's, To increase tolerance to activity/condition/position, To improve ability of physical actions for home/community/work/leisure, To improve gait and locomotor functions, To increase flexibility/ROM, To improve balance, To improve safety with gait, To reduce risk of recurrence, To improve ability to perform tasks related to life management This patient was last seen in our office . Pertinent comments regarding their Physical therapy will appear below: Patient was seen for PT for HEP and recommended a cane. At this point I will be discontinuing this patient from physical therapy. I would be happy to see this patient again in the future if found appropriate by the physician. Thank you! Tang Horta, PT, Cert MDT, OCS
== END 2018-11-21 19:00 | disposition home or self-care (01) ==
LOC: PT 13:00
PROVIDERS: Family Provider Family Medicine; PCP Family Medicine; Referring Provider Anesthesiology Pain Medicine; Visit Provider Anesthesiology Pain Medicine
DX: M54.2 Cervicalgia (principal); M54.9 Dorsalgia, unspecified; R29.6 Repeated falls
CPT/HCPCS: 97110; 97162

== ENCOUNTER → 2019-03-19 10:43 | Outpatient (CLI) | payer MEDICARE, SELFPAY ==
[2019-03-04 11:27] VITALS: BMI 29.5
--- NOTE | 2019-03-19 10:47 | RAD_ITS ---
STUDY: X-RAY - CERVICAL SPINE REASON FOR EXAM: Male, 73 years old. Chronic neck and shoulder pain TECHNIQUE: 2 view(s) of the cervical spine were obtained. COMPARISON: 11/12/2018 FINDINGS: Normal anterior atlantoaxial articulation. Normal odontoid process. There is worsening reversal of the normal cervical lordosis. There is multi-level endplate spondylosis. There is multi-level degenerative disc disease with multilevel disc space narrowing. There are atherosclerotic vascular calcifications of the carotid arteries. There is no demonstrated fracture of the cervical spine. RAD/Cerv Spine 2 or 3 Views IMPRESSION: No acute abnormality. Multilevel degenerative changes. Worsening of reversal of curvature. Electronically Signed: Nickolas Osman MD at 21:06 EST , Service support ,
== END ==
PROVIDERS: Family Provider Family Medicine; PCP Family Medicine; Referring Provider Anesthesiology Pain Medicine; Visit Provider Anesthesiology Pain Medicine
DX: M54.2 Cervicalgia (principal)
CPT/HCPCS: 72040

== ENCOUNTER → 2019-03-25 10:17 | Outpatient (CLI) | payer MEDICARE, SELFPAY ==
[2019-03-04 11:27] VITALS: BMI 29.5
--- NOTE | 2019-03-25 10:20 | NM_ITS ---
CLINICAL: 73-year-old male with history of epigastric pain and early satiety. SEMI-SOLID PHASE 99m Tc SULFUR COLLOID GASTRIC EMPTYING STUDY COMPARISON: None available FINDINGS: The patient was administered 1.0 mCi of 99m Tc sulfur colloid mixed with oatmeal and consumed per os. Image acquisitions in the anterior-posterior projections for a total of 60 minutes. There is prompt visualization of the stomach. There is no gastroesophageal reflux identified. The T1/2 linear fit was calculated to be 40.3 minutes, (Normal: 12-56 minutes). NM/Gastric Emptying Study IMPRESSION: 1. NORMAL 99m Tc sulfur colloid semi-solid phase (oatmeal) gastric emptying imaging examination. A. There is normal and preserved semi-solid phase gastric emptying compared to normal controls with maintained first order kinetics throughout all components of the examination. (Rose et al, J Nucl Med Tech 38: 186, 2010). Electronically Signed: Wenceslao Mclean DO at 22:49 EST Tel , Service support ,
== END ==
LOC: NM 10:18
PROVIDERS: Family Provider Family Medicine; PCP Family Medicine; Referring Provider Nurse Practitioner Adult Health; Visit Provider Nurse Practitioner Adult Health
DX: R10.13 Epigastric pain (principal); R68.81 Early satiety
CPT/HCPCS: 78264; A9541

== ENCOUNTER 2019-04-09 07:05 | Day surgery (SDC) | payer MEDICARE, SELFPAY ==
--- NOTE | 2019-04-02 01:41 | HP_ITS ---
Intake Vital Signs 04/02/19 Height 5 ft 11.6 in 04/02/19 Weight: 219 lb 04/02/19 BMI 30.0 04/02/19 BP 152/80 H 04/02/19 Blood Pressure Location Rt brachial 04/02/19 Position Sitting 04/02/19 Respiration 18 04/02/19 Pulse 67 04/02/19 Pulse Source Monitor 04/02/19 Temp 97.8 F 04/02/19 Temp Source Oral 04/02/19 Pulse Oximetry (%) 94 04/02/19 Oxygen Delivery Method room air Intake Visit Reasons: Discuss EGD Chief Complaint: GERD/Discuss EGD [employer] Required: No Is patient in pain?: No Allergies erythromycin base Allergy (Verified 04/02/19 13:32) Hives Penicillins [PCN] Allergy (Verified 04/02/19 13:32) Itching Medications Lovastatin [Mevacor] 40 mg PO QHS 08/10/16 [History Confirmed 04/02/19] Metformin HCl 1,000 mg PO BID 08/10/16 [History Confirmed 04/02/19] Metoprolol Tartrate [Lopressor (beta philippe)] 100 mg PO BID 08/10/16 [History Confirmed 04/02/19] Multivitamin [Daily Multiple Vitamin] 1 ea PO DAILY 08/10/16 [History Confirmed 04/02/19] albuterol sulfate 90 mcg/actuation aerosol inhaler 2 puff INHALATION Q4H g 10/16/18 [History Confirmed 04/02/19] aspirin 81 mg tablet,delayed release 81 mg PO DAILY 10/16/18 [History Confirmed 04/02/19] budesonide-formoterol HFA 80 mcg-4.5 mcg/actuation aerosol inhaler 2 puff INHALATION BID 10/16/18 [History Confirmed 04/02/19] divalproex 250 mg tablet,extended release 24 hr 500 mg PO QHS tab 10/16/18 [History Confirmed 04/02/19] etodolac 400 mg tablet 400 mg PO BID 10/16/18 [History Confirmed 04/02/19] ferrous sulfate 325 mg (65 mg iron) tablet 325 mg PO DAILY 10/16/18 [History Confirmed 04/02/19] nitroglycerin 0.4 mg sublingual tablet 0.4 mg SUBLINGUAL Q5-15M 10/16/18 [History Confirmed 04/02/19] pantoprazole 40 mg tablet,delayed release 40 mg PO DAILY tab 10/16/18 [History Confirmed 04/02/19] ropinirole 0.25 mg tablet 0.5 mg PO DAILY tab 10/16/18 [History Confirmed 04/02/19] spironolactone 25 mg tablet 25 mg PO DAILY 10/16/18 [History Confirmed 04/02/19] triamcinolone acetonide 0.1 % topical ointment 1 applic TOPICAL BID 10/16/18 [History Confirmed 04/02/19] ammonium,sod,potassium lactate 1 applic TOPICAL DAILY g 10/18/18 [History Confirmed 04/02/19] citalopram 10 mg tablet 10 mg PO QHS tab 10/18/18 [History Confirmed 04/02/19] lorazepam 0.5 mg tablet 0.5 mg PO DAILY PRN tab 10/18/18 [History Confirmed 04/02/19] furosemide 40 mg tablet 20 mg PO BID tab 03/04/19 [History Confirmed 04/02/19] glimepiride 2 mg tablet 2 mg PO QAM 03/04/19 [History Confirmed 04/02/19] isosorbide mononitrate 30 mg tablet,extended release 24 hr 30 mg PO DAILY #30 tab 03/04/19 [Rx Confirmed 04/02/19] lisinopril 20 mg tablet 10 mg PO DAILY tab 03/04/19 [History Confirmed 04/02/19] [facility] Medical History (Updated 04/02/19 @ 13:37 by Margarita Emmanuel MD) History of Costa's esophagus (Acute) Bilateral carotid artery stenosis (Chronic) HANK (obstructive sleep apnea) (Chronic) RBBB (right bundle branch block) (Acute) Chronic diastolic heart failure (Chronic) Atherosclerotic heart disease of [place] coronary artery without angina pectoris (Chronic) Essential hypertension (Chronic) Type 2 diabetes mellitus (Chronic) Hyperlipidemia (Chronic) GERD (gastroesophageal reflux disease) (Acute) CVA (cerebral vascular accident) (Acute) Pancreatitis (Acute) Costa esophagus (Chronic) Hiatal hernia (Chronic) Horseshoe kidney (Chronic) Microcytic anemia (Chronic) RLS (restless legs syndrome) (Chronic) Surgical History History of coronary artery bypass surgery (Chronic ~2005) History of strabismus surgery (Resolved) Family History (Updated 04/02/19 @ 13:31 by Gina Coombs) Mother Cancer Lung Heart disease High cholesterol Hypertension Brother Heart disease Father Heart disease Hypertension High cholesterol Social History (Updated 04/02/19 @ 13:41 by Margarita Emmanuel MD) Smoking Status: Current every day smoker alcohol intake: never substance use type: does not use caffeine: Yes Type: coffee Number of servings: 3 HPI HPI HPI: MARGARITA BUCKNER, is a 73 M who presents to the office today for HPI HPI Surgical H&P: Yes HPI: MARGARITA BUCKNER, is a 73 M who presents to the office today for surgical consultation and follow-up of Costa's esophagus. The patient has had various symptoms apparently of chest pain and abdominal pain. Over the years he has had evaluations. This includes a very recent nuclear medicine gastric emptying study which was normal. It is of note that Dr. Veronica Coleman on October 26, 2016 because of epigastric pain did an upper endoscopy. 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 Colonoscopy at that same setting showed some hyperplastic polyps. 2018 July 17, 2017 the patient had a colonoscopy again by Dr. Cheri Kidd because of an abnormal CT scan lesion of the cecum. No abnormality was noted by Dr. Veronica Coleman. Because of the patient's chest pain Dr. Zane Warren would like to proceed with cardiac catheterization but would like to have the upper abdominal scope be performed so as to exclude possible gastric etiology to the patient's complaints. To add to the patient's medical difficulties he has been recently diagnosed with Parkinson's disease. ROS General General: Yes weight change and fatigue; no appetite, colon cancer, breast cancer or weakness HEENT HEENT: Yes difficulty swallowing; no eye injury, eye surgery, swollen glands or hoarseness Endo Endocrine: Yes diabetes mellitus; no thyroid disease, thyroid cancer, Hair loss, heat intolerance or cold intolerance Skin Skin: No rash or changing moles Breast Breast: No left breast lump, right breast lump, nipple discharge, breast pain, abnormal mammogram, abnormal US or breast enlargement Musc Musculoskeletal: Yes back problems and arthritis; no rheumatoid arthritis, gout or joint pain Cardio Cardiovascular: Yes heart disease, high blood pressure, heart attack and heart stent; no murmur, pacemaker, atrial fibrillation, palpitations, shortness of breat with exertion or chest pain Psych Psychiatric: Yes depression and anxiety; no hearing voices Resp Respiratory: Yes shortness of breath, Yes sleep apnea, No cough, Yes COPD, No asthma, Yes emphysema, No wheezing Gastro Gastrointestinal: Yes abdominal pain, Yes nausea or vomiting, Yes diarrhea, Yes constipation, No blood in stool, Yes acid reflux, Yes hemorrhoids, No ulcers, No gallbladder problem, No black,tarry stools Willi Hematologic: No blood thinners, No blood disorders, No bleeding, No anemia, No blood clots Neuro Neurologic: No system reviewed and no additional complaints, except as docu, No as per HPI, No abnormal walking, No abnormal hearing, No abnormal movements, No abnormal speech, No behavioral changes, No burning sensations, No confusion, No seizure-like activity, No unsteadiness, No dizziness, No localized weakness, No frequent falls, No headache(s), No lack of coordination, No loss of vision, No memory loss, Yes numbness, No other visual disturbances, No radiating pain, No restless legs, No sensory deficit, No fainting, Yes tingling, No tremor(s), No weakness, No other Exam Const General: no acute distress Nutritional Appearance: overweight Other: Patient appears older than stated age Chest Breast Palpation: No nipple discharge Resp Other: Very poor respiratory excursion Cardio Rate: regular rate Rhythm: regular rhythm Heart Sounds: no murmurs GI Other: Obese, distended, nontender, Extrem Other: Mild edema lower extremities, patient sitting in wheelchair Assessment & Plan Problems 1. History of Costa's esophagus Z87.19 Plan 73-year-old gentleman who is been expressly referred for evaluation of esophagus and stomach to exclude potential etiology to complaints of chest upper abdominal pain. Patient is referred by Heather Caballero for expressed review of his history of Costa's I have offered the patient a esophagogastroduodenoscopy with possible biopsy. He has had a previous history of H. pylori but he does not think that this is that. He had a previous history of Costa's esophagus. Many of his complaints appear to be ongoing chronic in nature. He appears to have multiple medical comorbidities. I have suggested to the patient and his that I can assist with the upper endoscopy. He will continue to follow-up with primary care Dr. Raymond regarding his chronic issues. CC: Heather Caballero CNP and Dr. Noel Raymond and Dr. Zane Emmanuel M.D., F.A.C.S. Coding Level of Care Code 22262 Diagnoses History of Costa's esophagus Z87.19 04/02/19 1341 <Electronically signed by Margarita rodriguez MD> Date _ Margarita Emmanuel MD I have re-examined the patient. There are no clinical changes since date of exam.
[2019-04-02 13:41] VITALS: BMI 29.5
[2019-04-09 07:28] VITALS: BP 129/71; PULSE 61; RESP 15; TEMP 36.2; O2SAT 95; BMI 30.2
[2019-04-09 07:31] LABS: Bedside Glucose 155 mg/dL (70-110)
[2019-04-09] MEDS: Lactated Ringers 1,000 ML 100 ML IV (07:41)
--- NOTE | 2019-04-09 08:00 | EGD_PTH ---
PATIENT: MARGARITA BUCKNER LOC: EN U#:[id number] AGE/SX: 73/M ROOM: RE04/09/[address]: Dr. Margarita Emmanuel MD : 1945 BED: DIS: 04/09/2019 SPEC #: [id number] RECD: 04/09/19 09:06 STATUS: MAHOGANY PRINCE #: [id number] MIGUEL ANGEL: 04/09/19 08:[address]: Margarita Emmanuel DEPT: SURGICAL PATHOLOGY RECD BY: Sim Schrader ENTERED: 04/09/19 13:28 SP TYPE: EGD BIOPSY ABDIAZIZ DR: Dr. Noel Raymond MD Tissues: A - Gastric mucous membrane B - Esophageal mucous membrane Procedures: Surgery Specimen Level IV HEADER OPERATION: EGD ([facility] [place]) PRE-OP DIAGNOSIS: History of Costa's TISSUE SUBMITTED: A - Pyloric channel biopsy for H. pylori and pathology, B - Distal esophageal biopsy MICROSCOPIC DIAGNOSIS A. Pyloric channel, biopsy: Fragments of gastric mucosa with ulceration, fibrinous exudation, acute and chronic inflammation. See comment. B. Distal esophageal biopsy: Fragments of gastroesophageal mucosa with intestinal metaplasia (goblet cell metaplasia), consistent with Costa's esophagus. Chronic inflammation. Indefinite for dysplasia. See comment. SJ:rg 04/10/19 COMMENT A. The results of immunohistochemistry for Helicobacter pylori will be reported separately ([id number]). B. Immunohistochemistry ([id number]) supports the above diagnosis. Correlation with clinical, endoscopic findings and appropriate follow up are necessary. Case has been reviewed in consultation with Dr. Abreu who concurs with the above diagnosis. IDC:AM MICROSCOPIC DESCRIPTION Slides are reviewed. GROSS DESCRIPTION A - Received in fixative is one container labeled with the patient's name and designated pyloric channel biopsy. The specimen consists of two irregular fragments of light bell soft tissue that in aggregate measure 0.5 x 0.5 x 0.1 cm. The specimen is totally submitted in one cassette. B - Received in fixative is one container labeled with the patient's name and designated distal esophageal biopsy. The specimen consists of multiple irregular fragments of light bell soft tissue that in aggregate measure 1.5 x 0.5 x 0.1 cm. The specimen is totally submitted in one cassette. / TRACY:baudilio 04/09/19 TC:2 CPT: 83789 x2
--- NOTE | 2019-04-09 08:00 | IMM_PTH ---
PATIENT: MARGARITA BUCKNER LOC: EN U#:[id number] AGE/SX: 73/M ROOM: RE04/09/[address]: Dr. Margarita Emmanuel MD : 1945 BED: DIS: 04/09/2019 SPEC #: [id number] RECD: 04/09/19 14:52 STATUS: MAHOGANY RELeandro #: [id number] MIGUEL ANGEL: 04/09/19 08:[address]: Margarita Emmanuel DEPT: IMMUNOHISTOCHEMISTRY RECD BY: Kathleen Kennedy ENTERED: 04/09/19 14:52 SP TYPE: IMMUNO OTHR DR: Dr. Noel Raymond MD Tissues: A - Pyloric portion of stomach B - Esophagus, NOS Procedures: H Pylori (initial) P53 (initial) PHYSICIAN & INSTITUTION [place] [id number] SPECIMEN INFORMATION: Tissue Source: A - Pyloric channel biopsy, B - Distal esophageal biopsy Clinical Info: History of Costa's Specimen Number: [id number] A & B CPT code: 79041 x2 METHODOLOGY: Deparaffinized sections of prefer/formalin-fixed tissue or PAP/DQ stained slides are incubated with monoclonal/polyclonal antibodies/oligonucleotide probes. Localization is made via biotin free immunoperoxidase method. Appropriate controls are performed and reacted as expected. Results on target cell population are indicated in the following table: RESULTS: ANTIBODY / CLONE RESULT Block A H Pylori (polyclonal) negative Block B P53 (DO-7) negative These tests were developed and their performance characteristics determined by [facility]. They may not have been cleared or approved by the U.S. Food and Drug Administration. The FDA has determined that such clearance or approval is not necessary. The above immunohistochemical/dualISH markers are ordered and reviewed by the pathologist. INTERPRETATION: A. Pyloric channel biopsy: Negative for Helicobacter pylori organisms. B. Distal esophageal biopsy: Indefinite for dysplasia. SJ:baudilio 04/10/19
[2019-04-09 08:15] VITALS: BP 129/71; BP 95/51; PULSE 66; RESP 16; TEMP 36.1; O2SAT 95
--- NOTE | 2019-04-09 08:15 | OP.EGD_ITS ---
Patient Name: Anival Harris Procedure Date: 04/09/2019 7:53 AM Date of : 1945 Age: 73 Procedure: Upper GI endoscopy Indications: Follow-up of Costa's esophagus Providers: Anival Emmanuel MD Referring MD: Noel Raymond Medicines: See the Anesthesia note for documentation of the administered medications Complications: No immediate complications. Procedure: Pre-Anesthesia Assessment: - Prior to the procedure, a History and Physical was performed, and patient medications and allergies were reviewed. The patient's tolerance of previous anesthesia was also reviewed. The risks and benefits of the procedure and the sedation options and risks were discussed with the patient. All questions were answered, and informed consent was obtained. Prior Anticoagulants: The patient has taken no previous anticoagulant or antiplatelet agents. ASA Grade Assessment: II - A patient with mild systemic disease. After reviewing the risks and benefits, the patient was deemed in satisfactory condition to undergo the procedure. After obtaining informed consent, the endoscope was passed under direct vision. Throughout the procedure, the patient's blood pressure, pulse, and oxygen saturations were monitored continuously. The gastroscope was introduced through the mouth, and advanced to the second part of duodenum. The upper GI endoscopy was accomplished without difficulty. The patient tolerated the procedure well. 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 The maximum longitudinal extent of these mucosal changes was 1 cm in length. Mucosa was biopsied with a cold forceps for histology in a targeted manner at the gastroesophageal junction. The Z-line was irregular and was found 43 cm from the incisors. A small hiatal hernia was present. One non-bleeding superficial gastric ulcer with no stigmata of bleeding was found at the pylorus. Biopsies were taken with a cold forceps for histology. The examined duodenum was normal. Impression: - Esophageal mucosal changes secondary to established short-segment Costa's disease. Biopsied. - Z-line irregular, 43 cm from the incisors. - Small hiatal hernia. - Non-bleeding gastric ulcer with no stigmata of bleeding. Biopsied. - Normal examined duodenum. Recommendation: - Discharge patient to home. - Resume previous diet. - Continue present medications. - Use sucralfate tablets 1 gram PO QID. - Telephone my office for pathology results in 1 week. Procedure Code(s): --- Professional --- 69763, Esophagogastroduodenoscopy, flexible, transoral; with biopsy, single or multiple Diagnosis Code(s): --- Professional --- K22.70, Costa's esophagus without dysplasia K22.8, Other specified diseases of esophagus K44.9, Diaphragmatic hernia without obstruction or gangrene K25.9, Gastric ulcer, unspecified as acute or chronic, without hemorrhage or perforation CPT copyright 2017 [place] [employer] [employer]. All rights reserved. The codes documented in this report are preliminary and upon hair weaver review may be revised to meet current compliance requirements. Anival Emmanuel MD 04/09/2019 8:15:04 AM This report has been signed electronically. Number of Addenda: 0 Note Initiated On: 04/09/2019 7:53 AM
[2019-04-09 08:20] VITALS: BP 129/71; BP 93/52; PULSE 66; RESP 16; O2SAT 93
[2019-04-09 08:25] VITALS: BP 129/71; BP 99/55; PULSE 66; RESP 16; O2SAT 94
[2019-04-09 08:30] VITALS: BP 101/51; BP 129/71; PULSE 64; RESP 16; TEMP 36.4; O2SAT 94
== END 2019-04-09 09:13 | disposition home or self-care (01) ==
LOC: EN 07:06 → AC 07:09
PROVIDERS: Family Provider Family Medicine; PCP Family Medicine; Referring Provider Family Medicine; Visit Provider Surgery
PROC: 0DJ08ZZ Inspection of Upper Intestinal Tract, Via Natural or Artificial Opening Endoscopic (ICD-10-PCS; CPT 43235; principal; 2019-04-09 07:55)
DX: K22.70 Barrett's esophagus without dysplasia (principal); K21.0 Gastro-esophageal reflux disease with esophagitis; K29.50 Unspecified chronic gastritis without bleeding; K44.9 Diaphragmatic hernia without obstruction or gangrene; K25.9 Gastric ulcer, unspecified as acute or chronic, without hemorrhage or perforation; I11.0 Hypertensive heart disease with heart failure; I50.32 Chronic diastolic (congestive) heart failure; I65.23 Occlusion and stenosis of bilateral carotid arteries; G47.33 Obstructive sleep apnea (adult) (pediatric); I25.10 Atherosclerotic heart disease of native coronary artery without angina pectoris; E11.9 Type 2 diabetes mellitus without complications; E78.5 Hyperlipidemia, unspecified; F17.200 Nicotine dependence, unspecified, uncomplicated; Z86.73 Personal history of transient ischemic attack (TIA), and cerebral infarction without residual deficits; Z95.1 Presence of aortocoronary bypass graft; J44.9 Chronic obstructive pulmonary disease, unspecified; Z91.19 Patient's noncompliance with other medical treatment and regimen; G25.81 Restless legs syndrome; D64.9 Anemia, unspecified; F41.9 Anxiety disorder, unspecified; F32.9 Major depressive disorder, single episode, unspecified; Z79.84 Long term (current) use of oral hypoglycemic drugs; Z79.82 Long term (current) use of aspirin; Z79.899 Other long term (current) drug therapy
CPT/HCPCS: 43239; 82962; 88305; 88342; J7120; J2405